=== PATIENT | male | born 1965 | race African-American/Black ===

== ENCOUNTER 2016-10-27 08:50 | Emergency (ER) | payer MEDICAID ==
[~2016-10-27] VITALS: Ht 177.8 cm; Wt 73.0 kg
[~2016-10-27 08:50] MED LIST: BENZ2TAB7 PO; PARO-41 PO; PAXIL; PHEN100C4 PO; RISP3DIS PO
[2016-10-27 09:35] LABS: BASOPHILS % 0.4 % (0.0-2.0); HEMATOCRIT. 39.3 % (42.0-52.0); HEMOGLOBIN. 13.1 g/dL (14.0-18.0); MEAN CORPUSCULAR HEMOGLOBIN 27.1 pg (28.0-32.0); MEAN CORPUSCULAR VOLUME 81.1 fL (80.0-94.0); MEAN PLATELET VOLUME 7.9 fl (7.4-10.4); MONOCYTES % 4.3 % (2.0-8.0); NEUTROPHILS % 73.3 % (40.0-76.0); PLATELET 248 x1000/uL (130-400); RED BLOOD CELL COUNT 4.85 mill/uL (4.7-6.1)
[2016-10-27 09:36] LABS: CHLORIDE 110 mEq/L (98-107)
[2016-10-27 09:42] LABS: CARBON DIOXIDE 26 mEq/L (21-32)
[2016-10-27 09:49] LABS: ETHANOL BLOOD < 10 mg/dL
[2016-10-27 11:36] LABS: CLARITY URINE CLEAR (CLEAR); COLOR URINE YELLOW (YELLOW); GLUCOSE URINE NEGATIVE (NEGATIVE); KETONES URINE NEGATIVE (NEGATIVE); LEUKOCYTE ESTERASE URINE NEGATIVE (NEGATIVE); NITRITE URINE NEGATIVE (NEGATIVE); OCCULT BLOOD URINE NEGATIVE (NEGATIVE); PROTEIN URINE NEGATIVE (NEGATIVE); SPECIFIC GRAVITY URINE 1.006 (1.005-1.030); UROBILINOGEN URINE 0.2 E.U./dL (0.2-1.0)
[2016-10-27] MEDS ORDERED: MORPHINE SULFATE 4 MG/ML CPJ (NOT FOR IM USE) IV ONE (11:45)
[2016-10-27] MEDS ORDERED: ONDANSETRON HCL 4MG/2ML VIAL IV ONE (11:45)
[2016-10-27 11:55] LABS: *AMPHETAMINES SCREEN URINE NEGATIVE (NEGATIVE); *BARBITURATES SCREEN URINE NEGATIVE (NEGATIVE); *BENZODIAZEPINES SCREEN URINE NEGATIVE (NEGATIVE); *COCAINE SCREEN URINE NEGATIVE (NEGATIVE); CANNABINOID URINE SCREEN NEGATIVE (NEGATIVE); METHADONE URINE SCREEN NEGATIVE (NEGATIVE); OPIATES URINE SCREEN NEGATIVE (NEGATIVE); PHENCYCLIDINE URINE SCREEN NEGATIVE (NEGATIVE)
[2016-10-27 12:50] VITALS: BP 140/83
== END 2016-10-27 13:10 | disposition home or self-care (01) ==
LOC: ER 09:05
DX: R56.9 Unspecified convulsions (principal)
CPT/HCPCS: 36415; 70450; 80053; 80185; 80305; 81003; 85025; 96374; 96375; 99285; G0482; J2270; J2405; Z7610

== ENCOUNTER 2017-02-15 02:09 | Inpatient (IN) | payer MEDICAID, OTHER ==
[~2017-02-15] VITALS: Ht 182.9 cm; Wt 81.6 kg
[2017-02-15] MEDS ORDERED: SODIUM CHLORIDE 0.9% 1,000 ML IV ONE (02:59)
[2017-02-15] MEDS ORDERED: LORAZEPAM 2MG/ML CPJ IV ONE (03:00)
[2017-02-15] MEDS ORDERED: ZIPRASIDONE MESYLATE 20MG/VIAL IM ONE (03:30)
[2017-02-15 03:41] LABS: PROTHROMBIN TIME 10.7 sec (9.4-11.6)
[2017-02-15 03:42] LABS: BASOPHILS % 1.7 % (0.0-2.0); HEMATOCRIT. 43.3 % (42.0-52.0); HEMOGLOBIN. 14.3 g/dL (14.0-18.0); LYMPHOCYTES % 29.1 % (20.0-50.0); MEAN CORPUSCULAR HEMOGLOBIN 27.3 pg (28.0-32.0); MEAN CORPUSCULAR VOLUME 82.6 fL (80.0-94.0); MEAN PLATELET VOLUME 8.5 fl (7.4-10.4); MONOCYTES % 6.5 % (2.0-8.0); NEUTROPHILS % 58.7 % (40.0-76.0); PLATELET 168 x1000/uL (130-400); RED BLOOD CELL COUNT 5.24 mill/uL (4.7-6.1); RED CELL DISTRIBUTION WIDTH 14.4 % (11.6-14.6)
[2017-02-15 03:45] LABS: AMMONIA 39 uMol/L (<32)
[2017-02-15 03:49] LABS: CARBON DIOXIDE 31 mEq/L (21-32); CHLORIDE 108 mEq/L (98-107)
[2017-02-15 03:50] LABS: CREATINE KINASE 720 IU/L (39-308); ETHANOL BLOOD < 10 mg/dL; TROPONIN I 0.07 ng/mL (0.00-0.04)
[2017-02-15] MEDS ORDERED: PHENYTOIN SODIUM 1,000 MG in SODIUM CHLORIDE 0.9% 100 ML IV ONE (05:15)
[2017-02-15] MEDS ORDERED: LACTULOSE 20G/30ML UDC PO NR (05:15)
[2017-02-15] MEDS ORDERED: CLONIDINE 0.1MG TABLET PO PRN (07:15)
[2017-02-15] MEDS ORDERED: IPRATROPIUM/ALBUTEROL 0.5-3(2.5)MG/3ML NEB INH PRN (07:15)
[2017-02-15] MEDS ORDERED: GUAIFENESIN 200MG/10ML SUGAR FREE UDC PO PRN (07:15)
[2017-02-15] MEDS ORDERED: DIPHENHYDRAMINE 50MG/ML VIAL IV PRN (07:15)
[2017-02-15] MEDS ORDERED: NA PHOS,M-B/NA PHOS,DI-BA ENEMA 118ML PR PRN (07:15)
[2017-02-15] MEDS ORDERED: ONDANSETRON HCL 4MG/2ML VIAL IV PRN (07:15)
[2017-02-15] MEDS ORDERED: KETOROLAC 15MG/ML VIAL IV PRN (07:15)
[2017-02-15] MEDS ORDERED: ACETAMINOPHEN 325MG TABLET PO PRN (07:15)
[2017-02-15] MEDS ORDERED: MAGNESIUM/ALUMINUM HYDROXIDE/SIMETHICONE 30ML UDC PO PRN (07:15)
[2017-02-15] MEDS ORDERED: DOCUSATE SODIUM 100MG CAPSULE PO PRN (07:15)
[2017-02-15] MEDS ORDERED: NITROGLYCERIN 0.4MG TABLET SL SL PRN (07:15)
[2017-02-15] MEDS ORDERED: ONDANSETRON HCL 4MG/2ML VIAL IV ONE ×2 (07:45)
[2017-02-15 09:23] LABS: GLUCOSE URINE NEGATIVE (NEGATIVE); KETONES URINE NEGATIVE (NEGATIVE); LEUKOCYTE ESTERASE URINE NEGATIVE (NEGATIVE); NITRITE URINE NEGATIVE (NEGATIVE); OCCULT BLOOD URINE NEGATIVE (NEGATIVE); PROTEIN URINE NEGATIVE (NEGATIVE); UROBILINOGEN URINE 0.2 E.U./dL (0.2-1.0)
[2017-02-15 09:30] LABS: CLARITY URINE CLEAR (CLEAR); COLOR URINE PALE YELLOW (YELLOW)
[2017-02-15 10:00] LABS: *AMPHETAMINES SCREEN URINE NEGATIVE (NEGATIVE); *BARBITURATES SCREEN URINE NEGATIVE (NEGATIVE); *BENZODIAZEPINES SCREEN URINE NEGATIVE (NEGATIVE); *COCAINE SCREEN URINE NEGATIVE (NEGATIVE); CANNABINOID URINE SCREEN NEGATIVE (NEGATIVE); METHADONE URINE SCREEN NEGATIVE (NEGATIVE); OPIATES URINE SCREEN NEGATIVE (NEGATIVE); PHENCYCLIDINE URINE SCREEN NEGATIVE (NEGATIVE)
[2017-02-15 12:00] VITALS: BP 122/86
[2017-02-15] MEDS: FAMOTIDINE 20MG/2ML VIAL IV SCH ×2 (12:00→22:00)
[2017-02-15] MEDS: LEVETIRACETAM 500MG TABLET PO SCH ×2 (12:00→21:00)
[2017-02-15] MEDS: ENOXAPARIN 40MG/0.4ML SYR SUBCUT SCH (12:00)
[2017-02-15 14:13] VITALS: BP 122/86
[2017-02-15 16:00] VITALS: BP 131/86
[2017-02-15 20:00] VITALS: BP 129/79
[2017-02-15] MEDS ORDERED: ZOLPIDEM TARTRATE 5MG TABLET PO PRN (21:00)
[2017-02-16] VITALS: BP 119/76
[2017-02-16] MEDS: LEVETIRACETAM 500 MG in SODIUM CHLORIDE 0.9% 100 ML IV SCH ×2 (03:57→16:15)
[2017-02-16 04:00] VITALS: BP 142/92
[2017-02-16 08:00] VITALS: BP 141/97
[2017-02-16] MEDS: ENOXAPARIN 40MG/0.4ML SYR SUBCUT SCH (09:00)
[2017-02-16] MEDS: FAMOTIDINE 20MG/2ML VIAL IV SCH ×2 (09:00→20:44)
[2017-02-16 12:00] VITALS: BP 130/90
[2017-02-16 16:00] VITALS: BP 138/89
[2017-02-16 20:00] VITALS: BP 126/84
[2017-02-17] VITALS: BP 129/85
[2017-02-17] MEDS: LEVETIRACETAM 500 MG in SODIUM CHLORIDE 0.9% 100 ML IV SCH (03:03)
[2017-02-17 04:00] VITALS: BP 136/98
[2017-02-17 08:00] VITALS: BP 146/97
[2017-02-17] MEDS: FAMOTIDINE 20MG/2ML VIAL IV SCH (08:24)
[2017-02-17] MEDS: ENOXAPARIN 40MG/0.4ML SYR SUBCUT SCH (08:24)
[2017-02-17 12:10] VITALS: BP 146/97
== END 2017-02-17 14:30 | disposition home or self-care (01) | DRG 53 ==
LOC: ER 02:09 → 6WST 05:09 → EDBEDREQSVC 11:07 → ENRESERV 11:25
PROVIDERS: ADMIT Internal Medicine; ATTEND Internal Medicine
DX: G40.909 Epilepsy, unspecified, not intractable, without status epilepticus (principal); E72.20 Disorder of urea cycle metabolism, unspecified; M62.82 Rhabdomyolysis; F32.9 Major depressive disorder, single episode, unspecified; F10.20 Alcohol dependence, uncomplicated; K59.00 Constipation, unspecified; G47.00 Insomnia, unspecified; F17.210 Nicotine dependence, cigarettes, uncomplicated; Z59.0 Homelessness; Z91.19 Patient's noncompliance with other medical treatment and regimen; Z79.899 Other long term (current) drug therapy
CPT/HCPCS: 36415; 70450; 71010; 80053; 80185; 80305; 81003; 82140; 82550; 82962; 83036; 83605; 84484; 85025; 85610; 93005; 93970; 96374; 96375; 99285; G0482; J1165; J1200; J1650; J1953; J2060; J2405; J3486; J3490; J7030; J7050; A4315